=== PATIENT | female | born 1965 | race Caucasian/White ===

== ENCOUNTER → 2017-11-16 | Outpatient (CLI) | payer OTHER | LOC: M.RAD 11-15 11:59 | DX: N63.20 Unspecified lump in the left breast, unspecified quadrant (principal); R92.8 Other abnormal and inconclusive findings on diagnostic imaging of breast ==

== ENCOUNTER → 2018-05-10 | Outpatient (CLI) | payer OTHER | LOC: M.RAD 15:18 | DX: N63.42 Unspecified lump in left breast, subareolar (principal); R92.8 Other abnormal and inconclusive findings on diagnostic imaging of breast ==

== ENCOUNTER → 2018-06-12 | Outpatient (CLI) | payer OTHER | LOC: M.ULTRA 09:54 | DX: E04.2 Nontoxic multinodular goiter (principal) ==

== ENCOUNTER → 2018-09-14 | Outpatient (CLI) | payer OTHER ==
[2018-09-14 18:36] LABS: CHOLESTEROL 210 mg/dL (<200); HDL CHOLESTEROL 95 mg/dL (>40); LDL CHOLESTEROL 111 mg/dL (<100); TC:HDL 2.2 Ratio (Not establshd); TRIGLYCERIDE 23 mg/dL (<150); VLDL 5 mg/dL (<40)
[2018-09-14 18:57] LABS: SERUM ASSESSMENT CLEAR
== END ==
LOC: M.LAB 17:39
PROVIDERS: Family Medicine
DX: E78.00 Pure hypercholesterolemia, unspecified (principal)

== ENCOUNTER → 2019-05-28 | Outpatient (CLI) | payer OTHER | LOC: M.RAD 11:30 | DX: Z12.31 Encounter for screening mammogram for malignant neoplasm of breast (principal) ==

== ENCOUNTER → 2020-05-29 | Outpatient (CLI) | payer OTHER | LOC: M.ULTRA 10:30 | PROVIDERS: ATTEND Family Medicine | DX: E04.2 Nontoxic multinodular goiter (principal) ==

== ENCOUNTER → 2021-09-22 | Outpatient (CLI) | payer OTHER | LOC: M.ULTRA 10:00 | PROVIDERS: ATTEND Family Medicine | DX: E04.2 Nontoxic multinodular goiter (principal) ==